=== PATIENT | male | born 1975 | race Caucasian/White ===

== ENCOUNTER 2022-05-02 22:10 | Emergency (ER) | payer MEDICARE, SELFPAY ==
[2022-05-02 22:15] VITALS: BP 168/80; PULSE 84; RESP 20; TEMP 37.3; O2SAT 98; BMI 39.7
--- NOTE | 2022-05-02 22:25 | ED.LOWEXIN ---
HPI - Extremity Injury (Lower) General Chief Complaint: Extremity Injury, Lower Stated Complaint: Left lower extremity injury Time Seen by Provider: 05/02/22 22:18 History of Present Illness HPI Narrative: 46 year old male smoker without any significant chronic medical history presents with his in the chief complaint of an injury to his left ankle few hours ago. He states that he was running and chasing 1 of his kids into the water when felt a sudden significant pain in his posterior ankle accompanied by a pop. Since then he has been unable to push his foot down and has had pain with ambulation slightly extending up into his calf. He denies any hip or knee pain. He denies any history of the same. He has no numbness, tingling or weakness. He is otherwise well and denies any dizziness, weakness or lightheadedness. He denies any chest pain or shortness of breath. He is no runny nose or sore throat. He has no abdominal pain, nausea, vomiting or diarrhea. Review of Systems Review of Systems Narrative: GENERAL: Denies chills, fatigue, malaise, fever, sweats. HEENT: Denies sinus pain, ear pain, sore throat, difficulty swallowing, dizziness. RESPIRATORY: Denies dyspnea, cough, wheezing, hemoptysis, sputum. CARDIOVASCULAR: Denies chest pain, palpitations, orthopnea, edema, GASTROINTESTINAL: Denies nausea, vomiting, abdominal pain, diarrhea, constipation, melena. : Denies dysuria, frequency, incontinence, hematuria, urinary retention. MUSCULOSKELETAL: See HPI SKIN: Denies rash, skin lesions, or other NEUROLOGIC: See HPI PSYCHIATRIC: No concerning psychosocial issues. 12 point review of systems is negative except for those stated above Patient History Social History Smoking Status: Current some day smoker Exam Narrative Exam Narrative: GENERAL: [46] year old patient appears stated age. Well-developed patient, in mild distress. HEAD: Atraumatic. Normocephalic. EYES: Pupils equal round and reactive. Extraocular motions intact. No scleral icterus. No injection or drainage. ENT: Nose without bleeding, purulent drainage. Throat without erythema, tonsillar hypertrophy or exudate. Airway patent. NECK: Trachea midline. Non tender CARDIOVASCULAR: Regular rate and rhythm without murmurs, gallops, or rubs. RESPIRATORY: Clear to auscultation. Breath sounds equal bilaterally. No wheezes, rales, or rhonchi. GASTROINTESTINAL: Abdomen soft, non-tender, nondistended. EXTREMITIES: No pain in left hip or knee. Palpation in region of left achilles results in boggy depression and Corral Test is positive suggesting achilles injury BACK: Nontender without deformity or crepitance. No flank tenderness. NEURO: AOx3. SKIN: No rash or erythema of visible areas Initial Vital Signs Initial Vital Signs: Vital Signs Temperature 99.1 F 05/02/22 22:15 Pulse Rate 84 05/02/22 22:15 Respiratory Rate 20 05/02/22 22:15 Blood Pressure 168/80 H 05/02/22 22:15 Pulse Oximetry 98 05/02/22 22:15 Oxygen Delivery Method 05/02/22 22:15 Procedures Orthopedic Splinting/Casting Injury #1: Side: left Lower Extremity Injury Location: ankle Lower Extremity Immobilizer: boot orthosis Other Orthopedic Equipment: crutches Post splinting neuro exam: intact Post splinting vascular exam: intact Placed by: Nursing Course Orders Ordered: ED Orders 05/02/22 22:28 XR ankle LT min 3V Stat Consultations Consultation #1: discussed with family [employer] science teacher Ortho, no specific recommendations on splint (boot vs. OCL with plantar flexion), recommends no weight bearing and use of crutches with close follow up at ortho office Vital Signs Vital signs: Vital Signs - 8 hr 05/02/22 22:15 Temperature 99.1 F Pulse Rate 84 Respiratory Rate 20 Blood Pressure 168/80 H Pulse Oximetry 98 Oxygen Delivery Method Room Air MDM - Extremity Injury (Lower) Imaging Data Extremity x-ray #1: Radiologist's Impression: Cornelius Marino??46??M??1975 ? Allergy/Adv: Not Recorded Close Ankle X-Ray (Signed) Darell Lake - 05/02/22 Launch?[address] [address] XRay Report Signed Patient: Cornelius Marino MR#: [id number] : 1975 Acct:[id number] Age/Sex: 46 / M Date of Service: 05/02/22 Loc: ED Accession Number: [id number] ?? Procedure: XR ankle LT min 3V Ordering Provider: José Manuel Alvarez D.O. PROCEDURE:? XR ANKLE LT MIN 3V ? INDICATIONS:? pain, unable to ambulate, achilles ? TECHNIQUE:? 3 views of the ankle were acquired.? ? COMPARISON:? None. ? FINDINGS:? ? Bones:? No fractures or dislocations.? Ankle mortise is normally aligned.? No suspicious bony lesions.? ? Soft tissues:? No tibiotalar joint effusion.? Achilles tendon appears normal.? ? ? IMPRESSION:? ? 1. No fracture or dislocation. ? ? ? Dictated by: Darell Lake M.D. on 05/02/2022 at 23:52 ? ? Approved by: Darell Lake M.D. on 05/02/2022 at 23:53 ? Discharge Plan Departure Patient Disposition: Home Clinical Impression: Rupture of left Achilles tendon Instructions: DI for Achilles Tendon Rupture Activity Restrictions/Additional Instructions: *You have been diagnosed with [left Achilles tendon rupture] *What to do: *Please continue to take your regular medications as directed. [ ] New medication prescriptions sent to your pharmacy: [ ] [ ] New medication written as a paper prescription [x] Tylenol and occasional Motrin for pain *Please follow up with [ Elina] of [facility] in 2-3 days, call for an appointment. Let them know you were seen in the Emergency Department and that we ask that you be seen in follow up. We will electronically transmit a record of today's note if your PCP is in our system *Return to Emergency Department if you should have any new, worsening or concerning symptoms, such as [worsening pain, significant swelling, cold extremities, numbness, tingling, weakness or other bothersome symptoms Splint Care: Keep splint clean and dry. Elevated affected body part to decrease swelling. OK to use ice pack on the affected body part. Use for 15-20 minutes each time, for 5-6x per day. If you develop worsening pain, numbness, tingling, discoloration of the ankle/foot try to adjust the boot, or return to the Emergency Department. Return to the Emergency Department for any new or worsening symptoms. Referrals: Kel Antoine MD [Physician] - Kaylin Albarado MD [Primary Care Provider] - Visit Report Forms: Patient Portal/API
--- NOTE | 2022-05-02 22:28 | DI.RAD.S_ITS ---
PROCEDURE: XR ANKLE LT MIN 3V INDICATIONS: pain, unable to ambulate, achilles TECHNIQUE: 3 views of the ankle were acquired. COMPARISON: None. FINDINGS: Bones: No fractures or dislocations. Ankle mortise is normally aligned. No suspicious bony lesions. Soft tissues: No tibiotalar joint effusion. Achilles tendon appears normal. IMPRESSION: 1. No fracture or dislocation. Dictated by: Darell Lake M.D. on 05/02/2022 at 23:52 Approved by: Darell Lake M.D. on 05/02/2022 at 23:53
== END 2022-05-02 23:06 | disposition home or self-care (01) ==
PROVIDERS: Emergency Provider Emergency Medicine; PCP Family Medicine
DX: S86.012A Strain of left Achilles tendon, initial encounter (principal); Y93.02 Activity, running
CPT/HCPCS: 73610; 99282; 99283